=== PATIENT | male | born 1955 | race Caucasian/White ===

== ENCOUNTER 2022-11-29 13:51 | Emergency (ER) | payer OTHER ==
[~2022-11-29] VITALS: Ht 175.2 cm; Wt 77.1 kg
[2022-11-29] MEDS ORDERED: VIBRA-TAB100 MG PO (14:11)
[2022-11-29] MEDS ORDERED: PREDNISONE10 MG PO (14:11)
[2022-11-29] MEDS ORDERED: PROVENTIL HFA6.7 GM PO (14:11)
== END 2022-11-29 14:40 | disposition home or self-care (01) ==
LOC: ED 13:51
DX: J44.1 Chronic obstructive pulmonary disease with (acute) exacerbation (principal)